=== PATIENT | male | born 1950 | race Caucasian/White ===

== ENCOUNTER → 2019-06-07 | Outpatient (CLI) | payer MEDICARE ==
[~2019-06-07] MED LIST: ASPI81TA7 PO; ATOR1TAB19 PO; CALC600T7 PO; DIVA500T9 PO; HYDR-3644 PO; LISI5TAB PO; MULTLIQ7 PO; TEST5GEL TOP; VITAMIN IM
--- NOTE | 2019-06-07 09:29 | PFTRPT ---
Site: [facility], [address] [place] [address], [id number] ID: [id number] Name: YUDI ROWELL Visit Date: 06/07/2019 Second ID: [id number] Referring Doctor: WILLEM GARCIA M.D. Reviewing Doctor: Joel Perry MD Global Compensation Director: Reba Montenegro Age: 68 : 1950 Sex: Male Race: Height: 68.00 Inches Weight: 183.00 Lbs BSA: 1.97 Order IDs: [id number] Requested Test(s): <RESP-PFT.DLCO> Diagnosis: I50.42 Post Test Comments: The results of this test meet the ATS standards for acceptability and repeatability. The patient was unable to maintain a pant frequency of 60 breaths per minute during the lung volume measurements. The patient was unable to maintain a pant frequency of 60 to 90 breaths per minute during the airway resistance measurement. The results of this test are questionable due to the patient's inability to perform the maneuvers according to the ATS standards. Pt was given four puffs of albuterol for postbronchodilator. IVC is less than 85% of VC. DLCO may be underestimated. Patient had extremely difficult time following directions, particularly during plethsmography and DLCO portion of test. Multiple attempts were made to assure quality values were achieved to no avail. Review Status: Not Reviewed Pre-Bronch Post-Bronch Pred Actual %Pred Actual %Chng SPIROMETRY FVC (L) 4.21 1.87 44 1.69 -9 FEV1 (L) 3.13 1.51 48 1.44 -4 FEV1/FVC (%) 74 81 109 86 5 FEF 25% (L/sec) 6.99 5.78 82 5.06 -12 FEF 50% (L/sec) 4.27 2.35 54 2.18 -7 FEF 75% (L/sec) 1.22 0.40 32 0.34 -14 FEF 25-75% (L/sec) 2.46 1.41 57 1.20 -14 FEF Max (L/sec) 8.23 6.05 73 5.12 -15 FIVC (L) 1.86 1.36 -27 FIF 50% (L/sec) 4.55 2.11 46 1.54 -27 FIF Max (L/sec) 2.32 1.61 -30 MVV (L/min) 125 30 24 Expiratory Time (sec) 10.41 9.13 -12 Back Extrap Vol (L) 0.16 0.09 -43 Time To FEFmax (sec) 0.082 0.100 23 LUNG VOLUMES SVC (L) 4.34 2.61 60 IC (L) 3.15 1.96 62 ERV (L) 1.19 0.65 54 TGV (L) 3.46 2.19 63 RV (Pleth) (L) 2.27 1.54 67 TLC (Pleth) (L) 6.61 4.15 62 RV/TLC (Pleth) (%) 35 37 105 DIFFUSION DLCOunc (ml/min/mmHg) 26.06 8.70 33 DL/VA (ml/min/mmHg/L) 3.94 3.97 100 VA (L) 6.61 2.19 33 BHT (sec) 12.52 IVC (L) 1.28 TLC (SB) (L) 2.34 AIRWAYS RESISTANCE Raw (cmH2O/L/s) 1.45 1.46 100 Gaw (L/s/cmH2O) 1.03 0.71 69 sRaw (cmH2O*s) 4.76 3.02 63 sGaw (1/cmH2O*s) 0.20 0.33 166
== END ==
LOC: M CARPUL 08:22
PROVIDERS: ATTEND Internal Medicine Cardiovascular Disease
DX: I50.42 Chronic combined systolic (congestive) and diastolic (congestive) heart failure (principal)

== ENCOUNTER → 2019-07-07 | Outpatient (CLI) | payer MEDICARE ==
--- NOTE | 2019-07-13 19:08 | SLEEPCENT ---
DATE OF STUDY: 07/07/2019 ORDERED BY: NATASHA Enriquez Nocturnal polysomnography was performed for evaluation of sleep physiology in this patient with a history of excessive somnolence and nonrestorative sleep. Testing was performed in a recliner at the patient's request. 7 hours and 48 minutes of data were reviewed. There 204.5 minutes of sleep identified. Sleep latency was mildly prolonged at 19 minutes. Rapid eye movement (REM) latency was short at 44 minutes. Sleep architecture showed fragmentation, frequent periods of wake. There were four brief REM cycles noted. Overall sleep efficiency was only 44.5%. The patient's electrocardiogram showed atrial fibrillation with a controlled ventricular response rate of 78 beats per minute. Rate ranged 50-92. Electroencephalogram (EEG) showed mild coarsening in background, otherwise normal waveforms for awake and sleep. There were 77 respiratory events identified of 10 seconds in duration or greater for an apnea-hypopnea index of 22.6. The events were primarily obstructive not exclusive to sleep stage nor body posture. Arousals occurred 13.2 times per hour and oxygen desaturations were seen into the low 70s. There was minimal limb activity appreciated. IMPRESSION: Obstructive sleep apnea syndrome (G47.33). Apnea-hypopnea index 22.6. RECOMMENDATIONS: The patient should be encouraged to return to the sleep disorder center at the earliest convenience for pressure therapy. In the interim, alcohol and sedative avoidance should be practiced and caution exercised during the operation of motor vehicles.
== END ==
LOC: M SLEEP 19:28
PROVIDERS: ATTEND Nurse Practitioner Family
DX: G47.33 Obstructive sleep apnea (adult) (pediatric) (principal)

== ENCOUNTER → 2019-08-06 | Outpatient (CLI) | payer MEDICARE ==
--- NOTE | 2019-08-08 10:35 | SLEEPCENT ---
DATE OF PROCEDURE: 08/06/2019 ORDERED BY: NATASHA Enriquez Nocturnal polysomnography was performed for the titration of pressure therapy in this patient with obstructive sleep apnea syndrome. Apnea-hypopnea index of 22.6. For testing the patient was fit with a ResMed AirFit F30 full-face mask of small size; 4 cm of water pressure were applied to the circuit and the lights were extinguished. 8 hours and 15 minutes of data were reviewed. There were 313.5 minutes of sleep identified. Sleep latency was mildly prolonged at 16 minutes. Rapid eye movement (REM) latency was normal at 62 minutes. Sleep architecture was fair with 3 REM cycles. There was a prolonged period of wake between 1 and 2:15 resulting in reduced sleep efficiency of 63.7%. The patient's electrocardiogram showed atrial fibrillation with controlled ventricular response rate of 80 beats per minute. Electroencephalogram (EEG) showed mild coarsening in background. No focal events were identified. Normal waveforms for awake and sleep were seen. Respiratory events were reasonably palliated with CPAP at a pressure of +5. Additional increases in CPAP pressure resulted in the emergence of some central events. Activity was also seen in the limb leads. Limb movement arousal index was 7.7. IMPRESSION: Obstructive sleep apnea syndrome (G47.33). RECOMMENDATIONS: Nightly use of pressure therapy 5 cm of water.
== END ==
LOC: M SLEEP 20:00
PROVIDERS: ATTEND Nurse Practitioner Family
DX: G47.33 Obstructive sleep apnea (adult) (pediatric) (principal)

== ENCOUNTER → 2019-10-17 | Outpatient (REF) | payer MEDICARE | LOC: M LAB REF 13:12 | PROVIDERS: ATTEND Nurse Practitioner Family | DX: G47.33 Obstructive sleep apnea (adult) (pediatric) (principal) ==

== ENCOUNTER → 2019-10-31 | Outpatient (CLI) | payer MEDICARE ==
[~2019-10-31] MED LIST changes: +METHACHOLINE KIT (J7674) INH ONE
--- NOTE | 2019-10-31 10:06 | PFTRPT ---
Height: 68.00 Inches Weight: 172.00 Lbs BSA: 1.92 Diagnosis: R05 DATE OF PROCEDURE: 10/31/2019 ORDERED BY: April Pope INTERPRETATION: Patient presented for methacholine challenge study. After multiple attempts at the baseline spirometry and flow volume loop, patient had difficulty with maneuver and was unable to perform adequately. At a baseline, the forced vital capacity reduced, FEV1 in proportion, obstructive index, therefore, normal, but expiratory limb of the flow volume loop suggests markedly suboptimal performance of required maneuver. Due to this, the methacholine challenge portion of the study was terminated. IMPRESSION: Abnormal spirometry mainly on the basis of patient performance. Please correlate clinically. MTDD
--- NOTE | 2019-10-31 10:17 | REP ---
CHEST, TWO VIEWS: No comparison. Two views of the chest are performed. There is moderate cardiomegaly. There is increased density centrally behind the heart with mild splaying of the mainstem bronchi. Locules of air are seen anteriorly on the lateral view. The findings suggest a diaphragmatic hernia anteriorly. Subcarinal adenopathy cannot be excluded. There is calcification and tortuosity as well as ectasia of the thoracic aorta. There is no infiltrate in either lung. There are mild compression deformities of multiple vertebral bodies on the lateral view of indeterminate age. IMPRESSION: No acute infiltrate. Moderate cardiomegaly. There are findings suggesting an anterior diaphragmatic hernia. There is splaying of the mainstem bronchi. I cannot exclude subcarinal adenopathy. Recommend CT of the chest to further evaluate. Multiple mild compression deformities of the thoracic vertebral bodies of indeterminate age. Electronically Signed by Ulises Jones MD 10/31/2019 10:38 A
== END ==
LOC: M CARPUL 09:12
PROVIDERS: ATTEND Nurse Practitioner Family
DX: R05 Cough (principal); G47.33 Obstructive sleep apnea (adult) (pediatric); I51.7 Cardiomegaly
CPT/HCPCS: 71046; 95070; J7674